=== PATIENT | female | born 1990 | race African-American/Black ===

== ENCOUNTER 2017-07-12 18:10 | Emergency (ER) | payer MEDICAID, OTHER ==
[~2017-07-12] VITALS: Ht 157.5 cm; Wt 55.0 kg
[~2017-07-12 18:10] MED LIST: DOCU-138 PO; FERR325T23 PO; IBUP-779 PO; MULT-418 PO
[2017-07-12] MEDS ORDERED: IBUPROFEN 600MG TABLET PO ONE (22:30)
[2017-07-12] MEDS ORDERED: IBUPROFEN 100MG/5ML UDC PO ONE (23:15)
[2017-07-13 00:23] VITALS: BP 100/50
== END 2017-07-13 00:24 | disposition home or self-care (01) ==
LOC: ER 20:18
DX: B34.9 Viral infection, unspecified (principal)
CPT/HCPCS: 87804; 99284

== ENCOUNTER 2019-09-17 17:18 | Emergency (ER) | payer SELFPAY ==
[~2019-09-17] VITALS: Ht 167.6 cm; Wt 65.0 kg
[2019-09-17] MEDS ORDERED: METOCLOPRAMIDE HCL 10MG/2ML VIAL IV STA (18:43)
[2019-09-17] MEDS ORDERED: SODIUM CHLORIDE 0.9% 1,000 ML IV ONE (18:43)
[2019-09-17] MEDS ORDERED: KETOROLAC 30MG/ML VIAL IV STA (18:43)
[2019-09-17 20:11] LABS: CLARITY URINE CLOUDY (CLEAR); COLOR URINE YELLOW (YELLOW); KETONES URINE 1+ (NEGATIVE); LEUKOCYTE ESTERASE URINE TRACE (NEGATIVE); NITRITE URINE NEGATIVE (NEGATIVE); OCCULT BLOOD URINE NEGATIVE (NEGATIVE); PROTEIN URINE 1+ (NEGATIVE); SPECIFIC GRAVITY URINE 1.033 (1.005-1.030)
[2019-09-17] MEDS ORDERED: ACETAMINOPHEN 325MG TABLET PO ONE (20:15)
[2019-09-17 20:42] LABS: *AMPHETAMINES SCREEN URINE NEGATIVE (NEGATIVE); *BARBITURATES SCREEN URINE NEGATIVE (NEGATIVE); *BENZODIAZEPINES SCREEN URINE NEGATIVE (NEGATIVE)
[2019-09-17 20:43] LABS: *COCAINE SCREEN URINE NEGATIVE (NEGATIVE); CANNABINOID URINE SCREEN NEGATIVE (NEGATIVE); METHADONE URINE SCREEN NEGATIVE (NEGATIVE); OPIATES URINE SCREEN NEGATIVE (NEGATIVE); PHENCYCLIDINE URINE SCREEN NEGATIVE (NEGATIVE)
[2019-09-17 21:43] VITALS: BP 131/74
== END 2019-09-17 21:43 | disposition home or self-care (01) ==
LOC: ER 17:36
DX: R51 Headache (principal)
CPT/HCPCS: 70450; 80305; 81003; 96374; 96375; 99284; J1885; J2765; J7030